=== PATIENT | male | born 1945 | race Caucasian/White ===

== ENCOUNTER → 2019-03-29 | Outpatient (CLI) | payer MEDICARE | END | disposition home or self-care (01) | LOC: CVU 13:35 | PROVIDERS: ATTEND Genetic Counselor, MS | DX: I70.8 Atherosclerosis of other arteries (principal); I73.9 Peripheral vascular disease, unspecified; R07.9 Chest pain, unspecified; I74.8 Embolism and thrombosis of other arteries; I77.1 Stricture of artery; I10 Essential (primary) hypertension; E78.5 Hyperlipidemia, unspecified; E11.9 Type 2 diabetes mellitus without complications; Z95.1 Presence of aortocoronary bypass graft | CPT/HCPCS: 93922; 93925 ==

== ENCOUNTER → 2019-08-15 | Outpatient (CLI) | payer MEDICARE ==
[~2019-08-15] MED LIST: ASPI-496 PO; CLOP75TA PO; ENALAPRIL PO; INSU100V11 SQ; INSU300I SQ; LIPITOR PO; METF500T17 PO; NOVOLOG SQ
== END | disposition home or self-care (01) ==
LOC: CFH 15:30
PROVIDERS: ATTEND Internal Medicine Cardiovascular Disease
DX: I08.3 Combined rheumatic disorders of mitral, aortic and tricuspid valves (principal); I10 Essential (primary) hypertension; E78.5 Hyperlipidemia, unspecified
CPT/HCPCS: 93306